=== PATIENT | male | born 1980 | race African-American/Black ===

== ENCOUNTER 2017-11-12 16:48 | Emergency (ER) | payer OTHER ==
[~2017-11-12] VITALS: Ht 188 cm; Wt 95.3 kg
[2017-11-12 17:29] VITALS: BP 127/86
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
== END 2017-11-12 17:52 | disposition home or self-care (01) ==
LOC: ER 16:48
DX: S06.0X0A Concussion without loss of consciousness, initial encounter (principal); S16.1XXA Strain of muscle, fascia and tendon at neck level, initial encounter; V49.49XA Driver injured in collision with other motor vehicles in traffic accident, initial encounter; Y93.89 Activity, other specified; Y99.8 Other external cause status; Y92.488 Other paved roadways as the place of occurrence of the external cause
CPT/HCPCS: 99281